=== PATIENT | male | born 1960 | race Caucasian/White ===

== ENCOUNTER 2017-12-13 09:16 | Day surgery (SDC) | payer MEDICARE, OTHER ==
[~2017-12-13] VITALS: Ht 177.8 cm; Wt 86.4 kg
[~2017-12-13 09:16] MED LIST: CEPHALEXIN500 M1 PO; DOLOPHINE; GENTAMICIN EYE D5 ML OP; HCTZ 25MG TAB25 MG PO; PERCOCET 5/321 UDTAB PO; SYNTHROID 0.0.025 MG PO; SYNTHROID PO; [UNRECOGNIZED DRUG - OTHER]; [UNRECOGNIZED DRUG - REMARK]; [UNRECOGNIZED DRUG - REMARK]
[2017-12-13] MEDS ORDERED: LOPRESSOR 225 MG/TAB PO (09:59)
[2017-12-13] MEDS ORDERED: TIROSINT125 MC1 PO (10:00)
[2017-12-13 10:01] VITALS: BP 149/99; PULSE 48; TEMP 97.9
[2017-12-13] MEDS ORDERED: COZAAR 50MG50 MG/TAB PO (10:01)
[2017-12-13 11:45] VITALS: BP 107/71; PULSE 52; TEMP 98.2
[2017-12-13 12:00] VITALS: BP 124/87; PULSE 46
[2017-12-13 12:15] VITALS: BP 124/80; PULSE 48
== END 2017-12-13 12:25 | disposition home or self-care (01) ==
LOC: SDCO 09:16
DX: R19.7 Diarrhea, unspecified (principal); K57.30 Diverticulosis of large intestine without perforation or abscess without bleeding; K64.0 First degree hemorrhoids; Z86.010 Personal history of colon polyps; I10 Essential (primary) hypertension; E03.9 Hypothyroidism, unspecified; Z87.891 Personal history of nicotine dependence; G89.29 Other chronic pain; M54.9 Dorsalgia, unspecified; M79.606 Pain in leg, unspecified; Z97.8 Presence of other specified devices; Z89.612 Acquired absence of left leg above knee
CPT/HCPCS: OP; J2704

== ENCOUNTER 2020-07-04 17:49 | Emergency (ER) | payer MEDICARE, OTHER ==
[~2020-07-04] VITALS: Ht 177.8 cm; Wt 100.0 kg
[~2020-07-04 17:49] MED LIST changes: +COZAAR 50MG50 MG/TAB PO; +LOPRESSOR 225 MG/TAB PO; +TIROSINT125 MC1 PO
[2020-07-04 18:04] VITALS: BP 134/92; TEMP 97.5
[2020-07-04 19:51] LABS: LIPASE 216 U/L (23-300)
[2020-07-04 20:03] LABS: TROPONIN-I < 0.012 ng/mL (0.000-0.035)
[2020-07-04 22:11] VITALS: PULSE 66
== END 2020-07-04 22:11 | disposition home or self-care (01) ==
LOC: COL.ER 17:49
PROVIDERS: Physician Assistant
DX: R79.1 Abnormal coagulation profile (principal); K21.9 Gastro-esophageal reflux disease without esophagitis; I10 Essential (primary) hypertension; E03.9 Hypothyroidism, unspecified; Z88.6 Allergy status to analgesic agent; Z87.891 Personal history of nicotine dependence; Z79.890 Hormone replacement therapy
CPT/HCPCS: Q9967

== ENCOUNTER → 2024-02-14 | Outpatient (CLI) | payer MEDICARE, OTHER ==
[~2024-02-14] MED LIST changes: +DILAUDID 4MG TAB4 MG PO; +DOXYCYCLINE HY100 MG PO; +Iohexol 300 - 10 ML VIAL IV ONE; +MAXZIDE-25MG TA1 TAB PO; +PRILOSEC 20MG20 MG PO; +PROTONIX 40MG T40 MG PO
== END ==
LOC: COL.RAD 09:49
DX: M19.012 Primary osteoarthritis, left shoulder (principal)
CPT/HCPCS: Q9967